=== PATIENT | female | born 1995 | race Caucasian/White ===

== ENCOUNTER 2018-01-18 21:41 | Emergency (ER) | payer OTHER ==
[~2018-01-18] VITALS: Ht 160 cm; Wt 42.2 kg
[2018-01-18 21:56] VITALS: BP 108/74
[2018-01-18] MEDS ORDERED: DEXAMETHASONE 4 MG TABLET ONE (22:12)
[2018-01-18] MEDS ORDERED: DEXAMETHASONE 4 MG TABLET PO ONE (22:30)
[2018-01-18] MEDS ORDERED: ORAL BIRTH CONTROL (22:32)
== END 2018-01-18 23:06 | disposition home or self-care (01) ==
LOC: ED 22:45
DX: J02.0 Streptococcal pharyngitis (principal); Z88.0 Allergy status to penicillin
CPT/HCPCS: 87880; 99283; 99285